=== PATIENT | female | born 1950 | race Caucasian/White ===

== ENCOUNTER 2017-01-09 18:31 | Emergency (ER) | payer MEDICARE ==
--- NOTE | ~2017-01-09 | EKG ---
PATIENT: ROSSY PEREZ UNIT #: [id number] Ventricular Rate: 61 BPM Atrial Rate: 61 BPM P-R Interval: 106 ms QRS Duration: 86 ms Q-T Interval: 430 ms QTC Calculation(Bezet): 432 ms P [place]: 50 degrees Calculated R [place]: 71 degrees Calculated T [place]: 73 degrees Diagnosis Line: Sinus rhythm with sinus arrhythmia with short KS Diagnosis Line: Nonspecific ST abnormality Diagnosis Line: Abnormal ECG Diagnosis Line: When compared with ECG of 16-JUL-2016 01:35, Diagnosis Line: No significant change was found Diagnosis Line: Confirmed by ANNITA ZAMORA MD ([id number]) on Diagnosis Line: 01/12/2017 12:03:10 PM INTERPRETING MD: SERA VEGA
--- NOTE | ~2017-01-09 | CR72 ---
[facility]. [facility] A Service of [facility] & [facility] RADIOLOGY TEXT RESULTS PATIENT: ROSSY PEREZ LOCATION: SED : 50 UNIT #: [id number] AGE: [address]: Kenya Culver APRN SEX: F ORDER DR: [id number] [place] [id number] MR#: [id number] Acc #: [id number] NAME: ROSSY PEREZ : 1950 SEX: F STUDY DATE/TIME: 01/09/2017 18:10 UNIT: SED ROOM: STUDY DESCRIPTION: CR Chest Single View Portable Attending Physician: Kenya Culver A.P.R.N. Ordering Physician: Kenya Culver A.P.R.N. Primary Care Physician: Malachi Cano M.D. MEDICAL IMAGING REPORT This report is preliminary unless electronic signature is present. EXAM Portable chest HISTORY Hypertension, chest tightness for 3-4 days. COMPARISON 07/16/2016. FINDINGS Portable view of the chest demonstrates pulmonary hyperinflation, patchy hyperlucency suggesting underlying emphysema. No acute airspace disease or consolidation. No effusions. Heart, mediastinum, great vessels and bony thorax appear normal. Overall, no acute findings. Dictated by... Allison Sanchez M.D. THIS IS AN ELECTRONICALLY VERIFIED REPORT Allison Sanchez M.D. at 01/10/2017 2:02 PM RADHA/ninoska TD: 01/09/2017 21:28 JOB #: [id number] MEDICAL IMAGING REPORT Page 1 of 1
[2017-01-09 18:19] LABS: BASOPHIL# 0.1 X10e3 (0-0.3); BASOPHIL% 1.7 % (0-2.5); DIFF IND NO; EOSINOPHIL# 0.1 X10e3 (0-0.7); EOSINOPHIL% 1.4 % (0.0-7.0); HEMATOCRIT 36.9 % (35.0-45.0); HEMOGLOBIN 12.6 gm/dL (12.0-16.0); LYMPHOCYTE# 2.8 X10e3 (1.0-3.5); LYMPHOCYTE% 38.3 % (17.0-45.0); MEAN CELL VOLUME 98.4 FL (83-96); MEAN CORPUSCULAR HEMOGLOBIN 33.5 PG (28-34); MEAN PLATELET VOLUME 9.9 FL (6.5-11.5); MONOCYTE# 0.9 X10e3 (0-1.0); MONOCYTE% 12.5 % (3.0-12.0); NEUTROPHIL# 3.3 X10e3 (1.5-7.1); NEUTROPHIL% 46.1 % (40-75); PLATELET COUNT 272 X10e3 (140-420); RED BLOOD COUNT 3.76 X10e (3.90-5.30); RED CELL DISTRIBUTION WIDTH 13.8 % (11.0-15.5); WHITE BLOOD COUNT 7.3 X10e3 (4.0-10.5)
[2017-01-09 18:23] LABS: INR 1.1
[2017-01-09 18:30] LABS: POC - CKMB <1.0 ng/mL (0.0-7.9); POC - TROPONIN <0.05 ng/mL (<=0.05)
[2017-01-09 18:30] LABS: PARTIAL THROMBOPLASTIN TIME 27.4 SECONDS (25.6-38.1)
[2017-01-09 18:31] LABS: ALBUMIN SERUM 4.2 g/dL (3.5-5.0); BILIRUBIN, DIRECT 0.1 mg/dL (0.0-0.2); BILIRUBIN,INDIRECT 0.1 mg/dL (0.0-0.9); BILIRUBIN,TOTAL 0.2 mg/dL (0.2-2.0); BUN/CREATININE RATIO 8.75; CALCIUM SERUM 9.5 mg/dL (8.4-10.2); CREATININE SERUM 0.8 mg/dL (0.6-1.4); GLOM FILT RATE Estimated 76.9 mL/min (>60); POTASSIUM 3.6 mmol/L (3.5-5.1); PROTEIN TOTAL SERUM 7.3 g/dL (6.0-8.3)
[~2017-01-09 18:31] MED LIST: ASPIRIN81 M1 PO; ATIVAN PO; ATIVAN0.5 M1 PO; BACTROBAN15 GM TOP; BUTALB-ACETAMI1 EAC2 PO; CIPRO PO; CLEOCIN HCL300 M1 PO; CLEOCIN PO; COUMADIN PO; CYMBALTA20 MG PO; DARVOCET-N 1001 TAB PO; DOXYCYCLINE HY100 M1 PO; FIORINAL 50-321 EACH PO; FIORINAL-COD 31 EACH; HEADACHE MED; HYDROCHLOROTH12.5 M1 PO; KEPPRA500 M2 PO; LEVAQUIN PO; LIPITOR; LOPRESSOR PO; LOPRESSOR100 MG PO; LORTAB 5/500 TA1 TA1 PO; METOPROLOL SUCC50 MG PO; NORVASC PO; PHENERGAN PO; PLAVIX; PLAVIX PO; PREVACID; PREVACID PO; PROZAC; SIMVASTATIN20 MG PO; TOPROL XL PO; TYLOX 5/500 CAP1 CAP PO; VICODIN 5/500 T1 TAB PO; VICODIN PO; ZOCOR PO; ZOCOR20 MG PO; ZOFRAN PO; ZOLOFT PO; ZOLOFT100 MG PO; ZYVOX PO
[2017-01-09 18:42] LABS: URINE SOURCE CLEAN CATCH
[2017-01-09 18:44] LABS: URINE APPEARANCE CLEAR; URINE BILIRUBIN NEG (NEG); URINE BLOOD 1+ (NEG); URINE COLOR YELLOW; URINE GLUCOSE NEG (NORM); URINE KETONE NEG (NEG); URINE LEUKOCYTE ESTERASE NEG (NEG); URINE NITRATE NEG (NEG); URINE PH 6.5 (5-8); URINE PROTEIN NEG (NEG); URINE SPECIFIC GRAVITY <=1.005 (1.003-1.035); URINE UROBILINOGEN 0.2 MG/DL (NORM)
[2017-01-09 18:50] LABS: CULTURE INDICATED? NO; MICRO INDICATED? YES; URINE BACTERIA NEG (NEG); URINE HYALINE CAST 0-2 /[HPF]; URINE SQUAMOUS EPITHELIAL CELL OCCAS /[HPF]; URINE TRANSITIONAL EPI CELLS FEW /[HPF]; URINE WBC 0-2 /[HPF] (0-5)
[2017-01-09 20:28] LABS: POC - CKMB <1.0 ng/mL (0.0-7.9)
[2017-01-09 20:29] LABS: POC - TROPONIN <0.05 ng/mL (<=0.05)
== END 2017-01-09 21:55 ==
LOC: SED 18:31
PROVIDERS: Nurse Practitioner
DX: R07.9 Chest pain, unspecified (principal); R06.02 Shortness of breath; I10 Essential (primary) hypertension; E78.5 Hyperlipidemia, unspecified; Z86.73 Personal history of transient ischemic attack (TIA), and cerebral infarction without residual deficits; K21.9 Gastro-esophageal reflux disease without esophagitis; Z88.2 Allergy status to sulfonamides; Z88.1 Allergy status to other antibiotic agents; Z91.041 Radiographic dye allergy status; Z88.0 Allergy status to penicillin; Z79.84 Long term (current) use of oral hypoglycemic drugs; Z79.899 Other long term (current) drug therapy
CPT/HCPCS: 36415; 71010; 80048; 80076; 81003; 82553; 83880; 84484; 85025; 85610; 85730; 93005; 99285